=== PATIENT | male | born 1975 | race African-American/Black ===

== ENCOUNTER 2017-12-29 09:02 | Emergency (ER) | payer SELFPAY ==
[2017-12-29] MEDS ORDERED: predniSONE 20 MG TAB ONE (09:26)
== END 2017-12-29 09:51 | disposition home or self-care (01) ==
LOC: BURERS 09:02
DX: J45.901 Unspecified asthma with (acute) exacerbation (principal); Z79.891 Long term (current) use of opiate analgesic
CPT/HCPCS: 94640; J7506; J7620

== ENCOUNTER 2018-01-22 16:01 | Emergency (ER) | payer SELFPAY ==
[2018-01-22] MEDS ORDERED: predniSONE 20 MG TAB ONE (16:24)
--- NOTE | 2018-01-22 20:12 | RAD ---
CHEST TWO VIEWS 01/22/18 There is some slight increase in lung markings in the left base that are probably in the lingula. I c annot exclude an early infiltrate here. There is no major lobar infiltrate elsewhere. There are no ef fusions. The heart is normal in size. IMPRESSION: Possible small lingular infiltrate. Code T POS: HOME
== END 2018-01-22 17:18 | disposition home or self-care (01) ==
LOC: BURERS 16:01
DX: J45.901 Unspecified asthma with (acute) exacerbation (principal); Z87.891 Personal history of nicotine dependence; Z79.899 Other long term (current) drug therapy
CPT/HCPCS: 71046; J7506; J7620

== ENCOUNTER 2018-02-24 14:06 | Emergency (ER) | payer SELFPAY ==
[2018-02-24] MEDS ORDERED: methylPREDNISolone Sod Succ/PF 125 MG/2 ML VIAL ONE (14:29)
[2018-02-24] MEDS ORDERED: Magnesium Sulfate 2 GM/100 ML BAG ONE (14:29)
[2018-02-24 14:50] LABS: #Basophils 0.1 thou/uL (0.0-0.2); #Eosinphils 1.2 thou/uL (0.0-0.7); #Lymphocytes 1.1 thou/uL (1.20-3.40); #Monocytes 0.4 thou/uL (0.11-0.59); #Neutrophils 3.7 thou/uL (1.40-6.50); %Eosinophils 18.7 % (0.0-10.0); %Lymphocytes 16.5 % (21.0-51.0); %Neutrophils 56.8 % (42.0-75.0); Hemoglobin 15.4 g/dL (14.0-18.0); Mean Corpuscular HGB CONC 33.2 g/dL (32.0-36.0); Mean Corpuscular Hemoglobin 29.1 pg (27.0-31.0); Mean Corpuscular Volume 87.7 fL (78.0-98.0); Mean Platelet Volume 6.9 fL (7.4-10.4); Platelet Count 314 thou/uL (130-400); RBC Distribution Width 11.2 % (11.5-14.5); Red Blood Cell (RBC) Count 5.28 mill/uL (4.70-6.10); White Blood Cell (WBC) Count 6.6 thou/uL (4.8-10.8)
[2018-02-24 14:51] LABS: ALT (SGPT) 19 U/L (8-55); AST (SGOT) 20 U/L (5-34); Albumin 4.3 g/dL (3.5-5.0); Alkaline Phosphatase 70 U/L (40-150); Anion Gap 14 mmol/L (10-20); BUN (Urea Nitrogen) 9 mg/dL (8.9-20.6); Bilirubin, Total 0.4 mg/dL (0.2-1.2); Calc. Creatinine Clearance 0 mL/min (70-130); Calcium 9.7 mg/dL (7.8-10.44); Carbon Dioxide 22 mmol/L (22-29); Chloride 109 mmol/L (98-107); Estimated GFR-MDRD Greater than 90; Globulin 3.1 g/dL (2.4-3.5); Glucose 91 mg/dL (70-105); Potassium 3.9 mmol/L (3.5-5.1); Protein, Total 7.4 g/dL (6.0-8.3); Sodium 141 mmol/L (136-145)
--- NOTE | 2018-02-24 17:55 | RAD ---
PORTABLE CHEST: 02/24/18 An AP portable film at 1404 is compared with a 01/22 study. The heart remains normal in size and the lungs are clear. There are no infiltrative changes in the kane ng bases today. There are no effusions. The mediastinum appears normal. IMPRESSION: No acute finding. POS: HOME
[2018-02-25 10:36] LABS: CO2 Tension (PvCO2) 41.2 mmHg (41.0-51.0); O2 Tension (PvO2) 76.4 mmHg (35.0-45.0); pH (Venous) 7.367 (7.35-7.45)
[2018-02-25 10:37] LABS: Base Excess-Venous -1.7 mmol/L (0 (+/- 2.5)); Bicarbonate (HCO3v) 23.7 mmol/L (1.0-85.0); Calcium, Ionized 1.17 mmol/L (1.12-1.32); Hemoglobin - Calc 16.5 g/dL (12.0-18.0); Potassium 3.7 mmol/L (3.4-4.7); vO2 Saturation-calc 94.7 % (94-98)
[2018-02-25 10:38] LABS: T. Carbon Dioxide 24.9 mmol/L (1.0-85.0)
== END 2018-02-24 18:05 | disposition short-term general hospital (02) ==
LOC: BURERS 14:06
DX: J45.901 Unspecified asthma with (acute) exacerbation (principal); Z87.891 Personal history of nicotine dependence; Z79.899 Other long term (current) drug therapy
CPT/HCPCS: 36415; 71045; 80053; 82330; 82435; 82803; 82805; 83880; 84132; 84295; 85014; 85025; 94760; 96365; 96375; J2930; J3475; J7620

== ENCOUNTER 2018-06-16 23:11 | Emergency (ER) | payer SELFPAY ==
[2018-06-16] MEDS ORDERED: Benzonatate 100 MG CAP ONE (23:49)
[2018-06-16] MEDS ORDERED: Dexamethasone 4 MG TAB ONE (23:49)
[2018-06-16] MEDS ORDERED: AMOXicillin 250 MG CAP ONE (23:49)
== END 2018-06-17 00:02 | disposition home or self-care (01) ==
LOC: BURERS 23:11
DX: J06.9 Acute upper respiratory infection, unspecified (principal); J45.909 Unspecified asthma, uncomplicated; Z87.891 Personal history of nicotine dependence; Z79.899 Other long term (current) drug therapy; Z79.51 Long term (current) use of inhaled steroids
CPT/HCPCS: 99283; J8540

== ENCOUNTER 2018-07-20 23:55 | Emergency (ER) | payer SELFPAY ==
[2018-07-21] MEDS ORDERED: Albuterol Sulfate 1.25 MG/3 ML NEB ONE ×3 (00:33→02:11)
[2018-07-21] MEDS ORDERED: predniSONE 20 MG TAB ONE ×2 (00:33→00:36)
[2018-07-21] MEDS ORDERED: Magnesium Sulfate 2 GM/100 ML BAG ONE (01:20)
[2018-07-21] MEDS ORDERED: methylPREDNISolone Sod Succ/PF 125 MG/2 ML VIAL ONE (01:48)
[2018-07-21 02:11] LABS: #Basophils 0.1 thou/uL (0.0-0.2); #Eosinphils 1.1 thou/uL (0.0-0.7); #Lymphocytes 2.1 thou/uL (1.20-3.40); #Monocytes 0.5 thou/uL (0.11-0.59); #Neutrophils 6.7 thou/uL (1.40-6.50); %Basophils 1.3 % (0.0-1.0); %Lymphocytes 19.8 % (21.0-51.0); %Monocytes 5.1 % (0.0-10.0); %Neutrophils 63.9 % (42.0-75.0); Hemoglobin 14.5 g/dL (14.0-18.0); Mean Corpuscular Hemoglobin 28.8 pg (27.0-31.0); Mean Corpuscular Volume 87.3 fL (78.0-98.0); Mean Platelet Volume 6.7 fL (7.4-10.4); Platelet Count 309 thou/uL (130-400); RBC Distribution Width 12.2 % (11.5-14.5); Red Blood Cell (RBC) Count 5.04 mill/uL (4.70-6.10); White Blood Cell (WBC) Count 10.5 thou/uL (4.8-10.8)
[2018-07-21 02:19] LABS: Anion Gap 14 mmol/L (10-20); BUN (Urea Nitrogen) 7 mg/dL (8.9-20.6); Calc. Creatinine Clearance 0 mL/min (70-130); Calcium 9.5 mg/dL (7.8-10.44); Carbon Dioxide 23 mmol/L (22-29); Chloride 108 mmol/L (98-107); Estimated GFR-MDRD 89; Glucose 104 mg/dL (70-105); Potassium 3.5 mmol/L (3.5-5.1); Sodium 141 mmol/L (136-145)
--- NOTE | 2018-07-21 06:32 | RAD ---
PORTABLE CHEST: DATE: 07/21/2018. FINDINGS: An AP portable film at 0037 is compared with an 02/24/2018 study. The heart remains normal in size and the lungs are clear. No infiltrate or effusion was seen. There is no vascular congestion or edema. There is no sign of pneumonia. IMPRESSION: No acute thoracic findings. POS: HOME
== END 2018-07-21 02:04 | disposition short-term general hospital (02) ==
LOC: BURERS 23:55
DX: J45.902 Unspecified asthma with status asthmaticus (principal); Z87.891 Personal history of nicotine dependence; Z79.51 Long term (current) use of inhaled steroids; Z79.899 Other long term (current) drug therapy
CPT/HCPCS: 71045; 80048; 85025; 94640; 94660; 94760; 96365; 96375; J2930; J3475; J7506; J7620

== ENCOUNTER 2018-11-12 10:06 | Emergency (ER) | payer SELFPAY ==
[2018-11-12] MEDS ORDERED: Dexamethasone 4 MG TAB ONE (10:32)
[2018-11-12] MEDS ORDERED: Dexamethasone 4 mg/ml Vial ONE (10:33)
--- NOTE | 2018-11-12 11:35 | RAD ---
CHEST 2 VIEWS: DATE: 11/12/2018. FINDINGS: The heart is normal in size and the lungs are clear. There has been no adverse change since the 07/21 study. There is no vascular congestion or edema. The mediastinum appears normal. IMPRESSION: No acute thoracic findings. POS: HOME
[2018-11-12] MEDS ORDERED: AMOXicillin 250 MG CAP ONE (11:48)
[2018-11-12] MEDS ORDERED: Azithromycin 250 MG TAB ONE (11:48)
[2018-11-12] MEDS ORDERED: methylPREDNISolone Sod Succ/PF 125 MG/2 ML VIAL ONE (12:53)
[2018-11-12] MEDS ORDERED: Magnesium Sulfate 2 GM/100 ML BAG ONE (12:53)
[2018-11-12 13:19] LABS: #Basophils 0.1 thou/uL (0.0-0.2); #Eosinphils 0.6 thou/uL (0.0-0.7); #Lymphocytes 0.7 thou/uL (1.20-3.40); #Monocytes 0.1 thou/uL (0.11-0.59); #Neutrophils 7.8 thou/uL (1.40-6.50); %Eosinophils 6.5 % (0.0-10.0); %Lymphocytes 7.9 % (21.0-51.0); %Monocytes 1.4 % (0.0-10.0); %Neutrophils 83.2 % (42.0-75.0); Hemoglobin 15.1 g/dL (14.0-18.0); Mean Corpuscular HGB CONC 32.5 g/dL (32.0-36.0); Mean Corpuscular Hemoglobin 29.1 pg (27.0-31.0); Mean Corpuscular Volume 89.6 fL (78.0-98.0); Mean Platelet Volume 7.3 fL (7.4-10.4); Platelet Count 281 thou/uL (130-400); RBC Distribution Width 12.5 % (11.5-14.5); White Blood Cell (WBC) Count 9.4 thou/uL (4.8-10.8)
[2018-11-12 13:33] LABS: ALT (SGPT) 22 U/L (8-55); AST (SGOT) 20 U/L (5-34); Albumin 4.4 g/dL (3.5-5.0); Alkaline Phosphatase 69 U/L (40-150); Anion Gap 15 mmol/L (10-20); BUN (Urea Nitrogen) 11 mg/dL (8.9-20.6); Bilirubin, Total 0.3 mg/dL (0.2-1.2); Calc. Creatinine Clearance 0 mL/min (70-130); Calcium 9.8 mg/dL (7.8-10.44); Carbon Dioxide 22 mmol/L (22-29); Chloride 106 mmol/L (98-107); Estimated GFR-MDRD 87; Globulin 2.9 g/dL (2.4-3.5); Glucose 116 mg/dL (70-105); Potassium 4.1 mmol/L (3.5-5.1); Protein, Total 7.3 g/dL (6.0-8.3); Sodium 139 mmol/L (136-145)
== END 2018-11-12 13:35 | disposition short-term general hospital (02) ==
LOC: BURERS 10:06
DX: J18.1 Lobar pneumonia, unspecified organism (principal); J45.902 Unspecified asthma with status asthmaticus; Z87.891 Personal history of nicotine dependence
CPT/HCPCS: 36415; 36416; 71046; 80053; 83605; 84484; 85025; 87040; 94760; 96372; 96374; 96375; J1100; J2930; J3475; J7620; J8540

== ENCOUNTER 2019-08-20 13:33 | Emergency (ER) | payer SELFPAY ==
[2019-08-20] MEDS ORDERED: Albuterol Sulfate 2.5 mg/3 ml Neb ONE (14:52)
[2019-08-20] MEDS ORDERED: Albuterol Sulfate 2.5 mg/0.5 ml Neb ONE (14:55)
== END 2019-08-20 16:26 | disposition home or self-care (01) ==
LOC: BURERS 13:33
DX: J45.901 Unspecified asthma with (acute) exacerbation (principal); F17.210 Nicotine dependence, cigarettes, uncomplicated; Z71.6 Tobacco abuse counseling; Z79.51 Long term (current) use of inhaled steroids
CPT/HCPCS: 99406; J7611; J7620

== ENCOUNTER 2019-09-08 00:25 | Observation (INO) | payer SELFPAY ==
[2019-09-08] MEDS ORDERED: predniSONE 20 MG TAB ONE (00:41)
[2019-09-08] MEDS ORDERED: Albuterol Sulfate 1.25 MG/3 ML NEB ONE ×2 (01:00→01:01)
[2019-09-08] MEDS ORDERED: Albuterol Sulfate 2.5 mg/0.5 ml Neb ONE (01:02)
[2019-09-08 02:40] LABS: #Basophils 0.1 thou/uL (0.0-0.2); #Eosinphils 0.4 thou/uL (0.0-0.7); #Lymphocytes 0.5 thou/uL (1.20-3.40); #Monocytes 0.4 thou/uL (0.11-0.59); #Neutrophils 8.5 thou/uL (1.40-6.50); %Basophils 0.9 % (0.0-1.0); %Eosinophils 4.2 % (0.0-10.0); %Lymphocytes 5.4 % (21.0-51.0); %Monocytes 3.7 % (0.0-10.0); %Neutrophils 85.8 % (42.0-75.0); Mean Corpuscular HGB CONC 32.3 g/dL (32.0-36.0); Mean Corpuscular Hemoglobin 29.3 pg (27.0-31.0); Mean Corpuscular Volume 90.6 fL (78.0-98.0); Platelet Count 229 thou/uL (130-400); RBC Distribution Width 12.2 % (11.5-14.5); Red Blood Cell (RBC) Count 5.47 mill/uL (4.70-6.10); White Blood Cell (WBC) Count 9.9 thou/uL (4.8-10.8)
[2019-09-08 02:49] LABS: Anion Gap 14 mmol/L (10-20); BUN (Urea Nitrogen) 11 mg/dL (8.9-20.6); Calc. Creatinine Clearance 0 mL/min (70-130); Calcium 9.4 mg/dL (7.8-10.44); Carbon Dioxide 23 mmol/L (22-29); Chloride 104 mmol/L (98-107); Estimated GFR-MDRD 77; Glucose 130 mg/dL (70-105); Potassium 3.8 mmol/L (3.5-5.1); Sodium 137 mmol/L (136-145)
[2019-09-08] MEDS ORDERED: Albuterol Sulfate 2.5 mg/3 ml Neb NEB PRN (03:02)
[2019-09-08] MEDS ORDERED: Ondansetron ODT 4 MG TAB SL PRN (03:03)
[2019-09-08] MEDS ORDERED: Acetaminophen 325 MG TAB PO PRN (03:03)
[2019-09-08] MEDS ORDERED: Bacteriostatic Water 30 ML VIAL FS PRN (03:03)
[2019-09-08] MEDS ORDERED: Ondansetron PF 4 MG/2 ML Vial IVP PRN (03:03)
[2019-09-08 03:43] VITALS: BMI 29.7
[2019-09-08] MEDS ORDERED: FLU VACC QS2019-20(6MOS UP)/PF 60 MCG/0.5 ML SYRINGE IM ONE (08:00)
--- NOTE | 2019-09-08 08:07 | RAD ---
RADIOGRAPH CHEST 1 VIEW: DATE: 09/08/2019 HISTORY: 44-year-old male with dyspnea FINDINGS: There are no airspace densities, pulmonary edema, pneumothorax, or cardiomegaly. The lateral costophr enic angles are sharp. IMPRESSION: No acute cardiopulmonary findings.
[2019-09-08] MEDS ORDERED: methylPREDNISolone Sod Succ/PF 125 MG/2 ML VIAL IVP SCH (09:00)
[2019-09-08] MEDS ORDERED: predniSONE 20 MG TAB PO SCH (18:30)
[2019-09-08 22:44] VITALS: BP 140/85; TEMP 99
[2019-09-09] MEDS ORDERED: Azithromycin 250 MG TAB PO SCH (09:00)
== END 2019-09-08 23:57 | disposition home or self-care (01) ==
LOC: BURERS 00:25 → BURMED 02:41
PROVIDERS: ADMIT Family Medicine; ATTEND Family Medicine
DX: J45.901 Unspecified asthma with (acute) exacerbation (principal)
CPT/HCPCS: 71045; 80048; 83880; 84484; 85025; 93005; 94760; 96374; G0378; J2930; J7512; J7611; J7620

== ENCOUNTER 2020-01-25 05:06 | Inpatient (IN) | payer OTHER, SELFPAY ==
[2020-01-25] MEDS ORDERED: Ventolin HFA Inhaler 60 PUFF INHALER ONE (05:14)
[2020-01-25] MEDS ORDERED: methylPREDNISolone Sod Succ/PF 125 MG/2 ML VIAL ONE (05:21)
[2020-01-25] MEDS ORDERED: Magnesium 2 GM/50 ML BAG (IN WATER) ONE (05:21)
[2020-01-25 05:59] LABS: #Basophils 0.1 thou/uL (0.0-0.2); #Eosinphils 1.5 thou/uL (0.0-0.7); #Lymphocytes 2.6 thou/uL (1.20-3.40); #Monocytes 0.6 thou/uL (0.11-0.59); #Neutrophils 5.7 thou/uL (1.40-6.50); %Basophils 0.9 % (0.0-1.0); %Eosinophils 14.5 % (0.0-10.0); %Lymphocytes 24.9 % (21.0-51.0); %Monocytes 5.6 % (0.0-10.0); %Neutrophils 54.1 % (42.0-75.0); Mean Corpuscular HGB CONC 32.2 g/dL (32.0-36.0); Mean Corpuscular Hemoglobin 30.2 pg (27.0-31.0); Mean Corpuscular Volume 93.8 fL (78.0-98.0); Mean Platelet Volume 7.7 fL (7.4-10.4); Platelet Count 218 thou/uL (130-400); Red Blood Cell (RBC) Count 4.64 mill/uL (4.70-6.10); White Blood Cell (WBC) Count 10.5 thou/uL (4.8-10.8)
[2020-01-25 06:10] LABS: ALT (SGPT) 16 U/L (8-55); AST (SGOT) 10 U/L (5-34); Albumin 3.8 g/dL (3.5-5.0); Alkaline Phosphatase 52 U/L (40-110); Anion Gap 15 mmol/L (10-20); BUN (Urea Nitrogen) 11 mg/dL (8.9-20.6); Bilirubin, Total 0.2 mg/dL (0.2-1.2); Calc. Creatinine Clearance 0 mL/min (70-130); Calcium 8.6 mg/dL (7.8-10.44); Carbon Dioxide 21 mmol/L (22-29); Chloride 108 mmol/L (98-107); Estimated GFR-MDRD Greater than 90; Globulin 2.4 g/dL (2.4-3.5); Glucose 128 mg/dL (70-105); Potassium 3.2 mmol/L (3.5-5.1); Protein, Total 6.2 g/dL (6.0-8.3); Sodium 141 mmol/L (136-145)
--- NOTE | 2020-01-25 07:43 | CT ---
CTA Angio Chest W WO Con History: Shortness of breath Comparison: Reference is made to radiograph same day Findings: CT angiogram chest performed after the intravenous ministration of contrast. 3-D rendering provided. No proximal segmental pulmonary arterial filling defect. Aortic contour is normal. No pericardial effusion. No mediastinal adenopathy. Upper abdomen is unremarkable. No confluent airspace consolidation, pneumothorax or effusion. No displaced rib fracture. No acute th oracic spine abnormality. Impression: 1. No pulmonary embolism. 2. No evidence for pneumonia or other acute intrathoracic abnormality.
--- NOTE | 2020-01-25 07:48 | RAD ---
XR Chest 1 View Portable History: Asthma, shortness of breath with wheezing Comparison: None. Findings: Lungs are clear. No pneumothorax or effusion. Cardiac silhouette and mediastinal contours a re within normal limits. No acute osseous abnormality. Impression: No acute intrathoracic abnormality.
[2020-01-25 08:07] LABS: Troponin I Less than 0.010 ng/mL (< 0.028)
[2020-01-25] MEDS ORDERED: Potassium Chloride 20 MEQ TAB ONE (08:12)
[2020-01-25 09:32] VITALS: BMI 29.2
[2020-01-25] MEDS: Albuterol 200 PUFF (6.7GM INHALER) INH SCH ×4 (12:12→23:49)
[2020-01-25] MEDS: methylPREDNISolone Sod Succ/PF 125 MG/2 ML VIAL IVP SCH ×3 (12:12→23:50)
[2020-01-25] MEDS ORDERED: Iopamidol 370 76% 100 ML VIAL ONE (15:17)
[2020-01-26] MEDS: Albuterol 200 PUFF (6.7GM INHALER) INH SCH ×3 (03:38→12:09)
[2020-01-26 05:43] LABS: Anion Gap 15 mmol/L (10-20); BUN (Urea Nitrogen) 10 mg/dL (8.9-20.6); Calc. Creatinine Clearance 93 mL/min (70-130); Calcium 9.5 mg/dL (7.8-10.44); Carbon Dioxide 19 mmol/L (22-29); Chloride 109 mmol/L (98-107); Estimated GFR-MDRD Greater than 90; Glucose 215 mg/dL (70-105); Potassium 3.9 mmol/L (3.5-5.1); Sodium 139 mmol/L (136-145)
[2020-01-26] MEDS: methylPREDNISolone Sod Succ/PF 125 MG/2 ML VIAL IVP SCH ×2 (05:59→12:09)
[2020-01-26 12:08] LABS: SARS-CoV-2 MS2 Positive; SARS-CoV-2 N Gene Negative; SARS-CoV-2 S Gene Negative; SARS-CoV-2 by NAA Not Detected (NotDetected); SARS-CoV-2 orf1ab Negative
[2020-01-26 12:27] VITALS: BP 144/81; TEMP 97.8
--- NOTE | 2020-01-27 19:34 | HP ---
CHIEF COMPLAINT: Shortness of breath and wheezing. HISTORY OF PRESENT ILLNESS: A 44-year-old male who presented to emergency department today with complaint of increasing shortness of breath and wheezing over the last couple of days. He reports that he is not currently on any long-acting dual bronchodilator, ICS combinations for prevention at home, but has a Ventolin inhaler and DuoNeb and began with increasing shortness of breath and wheezing for a day or two prior to his admission, worse this morning. Despite his admission, he is unable to tell me why he has not been able to get his maintenance therapy. He does report that he was previously working for the in [employer], but was laid off due to COVID-19, so this might be financial. He is currently uninsured. He denies any recent smoke exposure, inciting event. Previously admitted four months ago when he was out of his long-acting inhaled steroid. Denies being around any sick contacts or COVID positive exposures. He has had no fever. Reports significant dyspnea on exertion. He was brought through the emergency department and secondary to uncertain COVID status, was given [id number] Proventil sprays 4 sprays with spacer x2, 2 g of IV magnesium, a liter of IV fluids, and 125 mg of IV Solu-Medrol. He appeared to be more comfortable, but it was going to need continued IV steroids and support prior to being able to discharge home since he has the significant dyspnea on exertion. PAST MEDICAL HISTORY: Asthma. PAST SURGICAL HISTORY: No past surgical history reported. SOCIAL HISTORY: The patient reports that he smoked when he was a teenager, but has not had any smoke exposure for years. No alcohol or illicit drug use. ALLERGIES: NO KNOWN DRUG ALLERGIES. MEDICATIONS: 1. DuoNeb 3 mL inhaled q.i.d. p.r.n. 2. Ventolin HFA two puffs q.4 hours p.r.n. shortness of breath. REVIEW OF SYSTEMS: GENERAL: Denies fever, chills, night sweats, or focal weakness. HEENT: Denies eye pain or discharge or vision changes. ENT; denies sore throat, rhinorrhea, ear pain, or postnasal drip. CARDIOVASCULAR: Denies chest pain, palpitations, orthopnea, or PND. RESPIRATORY: Positive for cough, shortness of breath, wheezing. No sputum production. GASTROINTESTINAL: Denies diarrhea, constipation, nausea, or vomiting. GENITOURINARY: Denies dysuria, urinary frequency, urinary output changes, or retention. MUSCULOSKELETAL: Denies joint swelling. SKIN: Denies rash. NEUROLOGIC: Denies numbness, tingling, vision changes, or confusion. HEMATOLOGIC: Denies bleeding. PHYSICAL EXAMINATION: VITAL SIGNS: His vital signs on ER presentation, blood pressure 127/97, heart rate 88, respirations 20, pain 0, O2 saturation 99% on 2 L and 95% on room air prior to O2 placement. Vital signs at my exam, temperature 97.5, pulse 86, respirations 18, 96% O2 saturation on room air, and blood pressure 131/75. GENERAL: Well-developed, well-nourished male, in no acute distress, does have some breathlessness with completing long sentences. HEENT: Pupils equal, round, reactive to light and accommodation. Extraocular muscles intact. Nares are patent without discharge. Tongue protrudes in the midline. No conjunctival erythema or discharge. NECK: Supple without lymphadenopathy, thyromegaly, JVD, or bruit. HEART: Regular rate and rhythm. Normal S1 and S2. No murmurs, clicks, rubs, or gallops. LUNGS: Diminished air entry throughout with rare expiratory wheezes scattered and increased expiratory to inspiratory ratio. No increased work of breathing except with prolonged speaking. ABDOMEN: Positive bowel sounds in all 4 quadrants. Soft, nontender, and nondistended. No masses, guarding, or rebound tenderness. EXTREMITIES: No cyanosis, clubbing, or edema. LABORATORY DATA: White count 10.5, hematocrit 43.5, hemoglobin 14, platelets 218. D-dimer . Sodium 141, potassium 3.2, chloride 108, bicarb 21, BUN 11, creatinine 1.05, glucose 128, calcium 8.6, lactic acid 0.7. Troponin I 0.020. BNP less than 10. IMAGIN. Chest x-ray, no acute intrathoracic abnormality. 2. Chest thorax CTA with no PE and no evidence for pneumonia. ASSESSMENT/PLAN: 1. Acute exacerbation of moderate persistent asthma. The patient with multiple hospitalizations over the last year without maintenance therapy. The patient will be continued on IV steroids, supportive O2 p.r.n., and MDI until his COVID results come back. After that, he can have nebulized treatments. We will try to insure that the patient is able to receive dual ICS/LABA maintenance therapy prior to his discharge to hopefully prevent repeat exacerbations. We will need a prednisone taper at discharge if GUERRA has improved by tomorrow afternoon, potential discharge planned. 2. Prophylaxis. Suspect short hospital stay, so no gastrointestinal prophylaxis given. The patient is ambulatory. 3. Code status, full code. Job ID: [id number]
--- NOTE | 2020-01-28 09:17 | DIS ---
DATE OF ADMISSION: 01/25/2020 DATE OF DISCHARGE: 01/26/2020 DISPOSITION: Home. DISCHARGE DIAGNOSIS: Asthma exacerbation. DISCHARGE MEDICATIONS: 1. Albuterol sulfate 2 puffs q.4 to 6 p.r.n. 2. Prednisone 20 mg bid x 3 days 4. Qvar 80 mcg one puff b.i.d. 5. Home nebulizer with albuterol sulfate 0.083% q.4 to 6 hours p.r.n. asthma. CODE STATUS: Full code. ALLERGIES: NO KNOWN DRUG ALLERGIES. HOSPITAL COURSE: A 44-year-old -[place] male with history of moderate persistent asthma, poorly controlled, admitted through [facility] emergency room for exacerbation. He lives in [place] with his girlfriend. He is unable to recall the name of his PCP. He agrees to follow up with a [facility] provider, and his followup appointment is scheduled prior to his leaving the hospital. He reports quitting smoking 5 years ago; however, a recent prior admission to this facility lists him as a current smoker. He cites dust and general allergies as a triggering event for his asthma. 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 He reports having been hospitalized or gone to the ER upwards of 6 times for asthma symptoms in the last 12 month in [facility], [facility], and [facility]. His chest x-ray, CT angio chest, and COVID were all negative. His was negative. Job ID: [id number] [facility]
== END 2020-01-26 13:10 | disposition home or self-care (01) | DRG 203 ==
LOC: BURERS 05:06 → BURMED 08:00
PROVIDERS: ADMIT Family Medicine; ATTEND Family Medicine
DX: J45.41 Moderate persistent asthma with (acute) exacerbation (principal); Z20.828 Contact with and (suspected) exposure to other viral communicable diseases; E87.6 Hypokalemia; Z56.0 Unemployment, unspecified; Z87.891 Personal history of nicotine dependence
CPT/HCPCS: 36415; 71045; 71275; 80048; 80053; 83605; 83880; 84484; 85025; 85379; 87635; 93005; 94760; 96361; 96365; 96375; J2930; J3475; J7620; Q9967; U0003

== ENCOUNTER 2020-12-30 00:19 | Observation (INO) | payer SELFPAY ==
[2020-12-30] MEDS ORDERED: predniSONE 20 MG TAB ONE (01:01)
[2020-12-30] MEDS ORDERED: Albuterol Sulfate 1.25 MG/3 ML NEB ONE (01:06)
[2020-12-30] MEDS ORDERED: Albuterol Sulfate 2.5 mg/0.5 ml Neb ONE (02:01)
[2020-12-30 02:35] VITALS: BMI 30.8
[2020-12-30] MEDS ORDERED: Ondansetron ODT 4 MG TAB SL PRN (03:15)
[2020-12-30] MEDS ORDERED: Acetaminophen 325 MG TAB PO PRN (03:15)
[2020-12-30] MEDS ORDERED: Ondansetron PF 4 MG/2 ML Vial IVP PRN (03:15)
[2020-12-30 04:12] LABS: SARS-CoV-2 NAA Rapid Test Not Detected (NotDetected)
[2020-12-30] MEDS: predniSONE 20 MG TAB PO SCH (07:43)
[2020-12-30] MEDS: Albuterol 200 PUFF (6.7GM INHALER) INH SCH ×4 (11:02→22:51)
[2020-12-30] MEDS: Mometasone 100 MCG/PUFF (1 INHALER) INH SCH ×2 (11:04→18:19)
[2020-12-30] MEDS ORDERED: Mometasone 100 MCG/PUFF (1 INHALER) INH SCH (11:15)
[2020-12-31] MEDS: Albuterol 200 PUFF (6.7GM INHALER) INH SCH ×3 (03:00→11:34)
[2020-12-31 06:43] LABS: #Basophils 0.1 thou/uL (0.0-0.2); #Eosinphils 0.1 thou/uL (0.0-0.7); #Lymphocytes 1.5 thou/uL (1.20-3.40); %Basophils 0.8 % (0.0-1.0); %Eosinophils 0.6 % (0.0-10.0); %Lymphocytes 17.6 % (21.0-51.0); Hemoglobin 16.2 g/dL (14.0-18.0); Mean Corpuscular HGB CONC 33.1 g/dL (32.0-36.0); Mean Corpuscular Hemoglobin 30.4 pg (27.0-31.0); Mean Corpuscular Volume 91.9 fL (78.0-98.0); Mean Platelet Volume 7.5 fL (7.4-10.4); Platelet Count 257 thou/uL (130-400); RBC Distribution Width 12.5 % (11.5-14.5); Red Blood Cell (RBC) Count 5.33 mill/uL (4.70-6.10); White Blood Cell (WBC) Count 8.6 thou/uL (4.8-10.8)
[2020-12-31 06:59] LABS: ALT (SGPT) 19 U/L (8-55); AST (SGOT) 16 U/L (5-34); Alkaline Phosphatase 57 U/L (40-110); Anion Gap 17 mmol/L (10-20); BUN (Urea Nitrogen) 16 mg/dL (8.9-20.6); Bilirubin, Total 0.3 mg/dL (0.2-1.2); Calc. Creatinine Clearance 89 mL/min (70-130); Calcium 9.7 mg/dL (7.8-10.44); Carbon Dioxide 22 mmol/L (22-29); Chloride 107 mmol/L (98-107); Globulin 2.2 g/dL (2.4-3.5); Glucose 111 mg/dL (70-105); Potassium 4.1 mmol/L (3.5-5.1); Protein, Total 6.2 g/dL (6.0-8.3); Sodium 142 mmol/L (136-145)
[2020-12-31] MEDS: Mometasone 100 MCG/PUFF (1 INHALER) INH SCH (07:24)
[2020-12-31] MEDS: predniSONE 20 MG TAB PO SCH (07:58)
[2020-12-31] MEDS ORDERED: Mometasone 100 MCG/PUFF (1 INHALER) INH SCH (11:45)
[2020-12-31] MEDS ORDERED: Albuterol 200 PUFF (6.7GM INHALER) INH SCH (11:45)
[2020-12-31 11:48] VITALS: BP 143/95; TEMP 97.8
== END 2020-12-31 11:56 | disposition home or self-care (01) ==
LOC: BURERS 00:19 → BURMED 02:00
PROVIDERS: ADMIT Family Medicine; ATTEND Family Medicine
DX: J45.901 Unspecified asthma with (acute) exacerbation (principal); J30.9 Allergic rhinitis, unspecified; Z20.822 Contact with and (suspected) exposure to COVID-19
CPT/HCPCS: 0240U; 36415; 80053; 85025; G0378; J7512; J7611; J7620